=== PATIENT | female | born 1970 | race Caucasian/White ===

== ENCOUNTER 2021-03-26 15:49 | Observation (INO) ==
[2021-03-26 16:49] LABS: Basophils # 0.1 10*3/uL (0.0-0.2); Basophils % 0.7 % (0.0-0.8); Eosinophils # 0.2 10*3/uL (0.0-0.87); Eosinophils % 1.5 % (0.00-10.9); Hematocrit 43.8 VOL% (35.7-47.0); Hemoglobin 14.6 GM/DL (12.0-16.0); Immature Granulocytes % 0.8 %; Lymphocytes # 3.8 10*3/uL (1.4-4.0); Lymphocytes % 31.3 % (21.3-54.2); Mean Corpuscular HGB Conc 33.3 GM/DL (32-36); Mean Corpuscular Volume 93.8 FL (87-102); Mean Platelet Volume 11.4 FL (9.6-12.0); Neutrophils % 59.7 % (38.7-73.9); Platelet Count 234 T/CUMM (130-400); Red Blood Count 4.67 MC/CUMM (3.8-5.5); Red Cell Distribution Width 13.2 % (9.3-17.3); White Blood Count 12.2 T/CUMM (4-12)
[2021-03-26 17:02] LABS: INR 0.9; PT Patient Result 10.2 SECS (10.5-12.0); Partial Thromboplastin Time 29.6 SECS (23.8-32.1)
[2021-03-26 17:09] LABS: Alanine Aminotransferase 25 U/L (13-56); Albumin 4.3 G/DL (3.4-5.0); Alkaline Phosphatase 90 U/L (45-117); Aspartate Amino Transferase 14 U/L (0-37); Bilirubin,Total < 0.39 MG/DL (0.20-1.00); Blood Urea Nitrogen 25 MG/DL (7-18); Calcium 9.7 MG/DL (8.5-10.1); Carbon Dioxide 25 MMOL/L (21-32); Estimated Glom Filtration Rate 63 ML/MIN; Glucose 84 MG/DL (74-106); Osmolality,Calculated 270.2 MOS/KG (273-304); Potassium 4.3 MMOL/L (3.5-5.1); Sodium 134 MMOL/L (136-145); Total Protein 7.8 G/DL (6.4-8.2)
[2021-03-26] MEDS ORDERED: DEXAMETHASONE 4 MG/1 ML VIAL IV STA (19:42)
[2021-03-26] MEDS ORDERED: ALBUTEROL/IPRATROPIUM 3 ML NEB RESP TX STA (19:42)
[2021-03-26] MEDS ORDERED: ASPIRIN CHEW 81 MG TABLET PO STA (19:44)
[2021-03-26] MEDS ORDERED: MORPHINE 2 MG/1 ML SYRINGE IV STA ×2 (19:44→21:00)
[2021-03-26] MEDS ORDERED: ONDANSETRON 4 MG/2 ML VIAL IV ONE (21:00)
[2021-03-26] MEDS ORDERED: PANTOPRAZOLE 40 MG VIAL IV STA (21:00)
[2021-03-26] MEDS ORDERED: MORPHINE 2 MG/1 ML SYRINGE IV PRN (22:52)
[2021-03-26] MEDS ORDERED: ENOXAPARIN 100 MG/ML SYRINGE SUBCUT ONE (22:52)
[2021-03-26] MEDS ORDERED: GLUCAGON 1 MG VIAL IM PRN (22:52)
[2021-03-26] MEDS ORDERED: DEXTROSE 10% 250 ML BAG IV PRN (23:08)
[2021-03-26 23:18] LABS: Bilirubin,Urine Negative (Negative); Blood, Urine Negative (Negative); Glucose,Urine (UA) >=500 mg/dL (Negative); Ketones,Urine 5 mg/dL (Negative); Mucus,Urine Occasional /LPF (Occasional); Nitrite,Urine Negative (Negative); Protein,Urine Negative; RBC,Urine 5 /HPF (0-4); Squamous Epithelial Cell,Urine Occasional /HPF (0-10); Urine Appearance Slightly Hazy (Clear); Urine Color Yellow (Yellow); Urine Specific Gravity 1.018 (1.001-1.035); Urine Urobilinogen < 2.0 EU/DL (<2.0)
[2021-03-26 23:48] LABS: Barbiturates Screen,Urine Negative (Negative); Benzodiazepines Screen,Urine Negative (Negative); Cannabinoid Screen,Urine Negative (Negative); Opiate Screen,Urine Negative (Negative); Phencyclidine Screen,Urine Negative (Negative)
[2021-03-27] MEDS ORDERED: TOPIRAMATE 25 MG TABLET PO ONE (01:17)
[2021-03-27 02:43] LABS: Albumin 3.7 G/DL (3.4-5.0); Bilirubin,Total 0.6 MG/DL (0.20-1.00); Calcium 9.1 MG/DL (8.5-10.1); Osmolality,Calculated 277.7 MOS/KG (273-304); Potassium 4.9 MMOL/L (3.5-5.1); Risk Ratio 3.46; Total Protein 7.2 G/DL (6.4-8.2); VLDL Cholesterol 71.2 MG/DL
[2021-03-27 06:12] LABS: Basophils # 0.1 10*3/uL (0.0-0.2); Basophils % 0.4 % (0.0-0.8); Eosinophils % 0.2 % (0.00-10.9); Hematocrit 44.8 VOL% (35.7-47.0); Hemoglobin 15.2 GM/DL (12.0-16.0); Immature Granulocytes % 0.8 %; Immature Granulocytes Absolute 0.09 #; Lymphocytes # 1.7 10*3/uL (1.4-4.0); Mean Corpuscular HGB Conc 33.9 GM/DL (32-36); Mean Corpuscular Volume 94.3 FL (87-102); Mean Platelet Volume 12.3 FL (9.6-12.0); Monocytes % 4.3 % (1.7-12.7); Neutrophils % 79.3 % (38.7-73.9); Platelet Count 234 T/CUMM (130-400); Red Blood Count 4.75 MC/CUMM (3.8-5.5); White Blood Count 11.6 T/CUMM (4-12)
[2021-03-27] MEDS ORDERED: LEVOTHYROXINE 125 MCG TABLET PO SCH (06:30)
[2021-03-27] MEDS ORDERED: SODIUM CHLORIDE 0.9% 1,000 ML IV SCH (07:00)
[2021-03-27 07:18] VITALS: BP 136/84
[2021-03-27] MEDS ORDERED: INSULIN REGULAR 100 UNIT/ML SUBCUT SCH (07:30)
[2021-03-27] MEDS ORDERED: ASPIRIN EC 325 MG TABLET PO SCH (09:00)
[2021-03-27] MEDS ORDERED: ESTRADIOL 0.01% VAG CREAM 42.5 GM TUBE VAG SCH (09:00)
[2021-03-27] MEDS ORDERED: lisinopriL 10 MG TABLET PO SCH (09:00)
[2021-03-27] MEDS ORDERED: TOPIRAMATE 25 MG TABLET PO SCH (09:00)
[2021-03-27] MEDS ORDERED: clonazePAM 0.5 MG TABLET PO SCH (09:00)
[2021-03-27] MEDS ORDERED: ROSUVASTATIN 20 MG TABLET PO SCH (09:00)
[2021-03-27] MEDS ORDERED: PANTOPRAZOLE 40 MG TABLET PO SCH (09:00)
[2021-03-27] MEDS ORDERED: buPROPion XL 150 MG TABLET PO SCH (09:00)
== END 2021-03-27 10:54 | disposition home or self-care (01) ==
LOC: N.EDINP 15:49 → N.ED 15:49 → N.EDINP 03-27 10:55
PROVIDERS: ADMIT Internal Medicine; ATTEND Internal Medicine